=== PATIENT | male | born 1940 | race Caucasian/White ===

== ENCOUNTER 2017-11-30 05:52 | Emergency (ER) | payer MEDICARE, MEDICAID ==
[~2017-11-30] VITALS: Ht 182.9 cm; Wt 72.0 kg
[~2017-11-30 05:52] MED LIST: ARIC10TA PO; ASPI81TA82 PO; BUSP10 PO; CALCTAB23 PO; DILA100C PO; ESCI10TA PO; FLEEENE3 PR; FOSA70TA PO; LEVO.05 PO; MEMA28CA PO; MILKSUS5 PO; NU-I150C PO; PROM25TA5 PO; RENATAB5 PO; ROBISYP PO; SENN8.6T8 PO; [UNRECOGNIZED DRUG - CODE] PO
[2017-11-30 06:01] VITALS: BP 141/63; PULSE 76; RESP 16; TEMP 98.7; O2SAT 98
[2017-11-30 07:02] VITALS: BP 114/56; PULSE 70; RESP 18; O2SAT 99
--- NOTE | 2017-11-30 07:51 | PD ---
HPI Chief Complaint: Fall Time Seen by Provider: 07:25 Travel History International Travel<30 days: No Contact w/Intl Traveler<30days: No Traveled to known affect area: No History of Present Illness HPI 77-year-old male residential patient with history of dementia presents to the ER today brought in by EMS after he fell out of bed. Patient remembers falling out of bed, denies significant injuries, but does complain of neck pain but he states it hurts all the time anyway. He admits to having bumped his head but denies any loss of consciousness. He says that he was able to get up on his own and walk. However, it is unclear whether he is a reliable historian. Modifying Factors: None Associated Signs & Symptoms: Fall from bed, neck pain, minor head injury Risk Factors: Elderly, dementia PFSH Past Medical History Hx Anticoagulant Therapy: Yes Alzheimer's Disease: Yes Anemia: Yes Arthritis: Yes (OSTEO) Asthma: No Autoimmune Disease: No Blood Disorders: No Anxiety: Yes Depression: Yes Heart Rhythm Problems: No Cancer: No Cardiovascular Problems: No High Cholesterol: No Chemotherapy: No Chest Pain: No Congestive Heart Failure: No COPD: No Cerebrovascular Accident: No Dementia: Yes Diabetes: No Diminished Hearing: No Endocrine: No Gastrointestinal Disorders: No GERD: Yes Glaucoma: No Genitourinary: No Headaches: No Hepatitis: No Hiatal Hernia: No Hypertension: No Immune Disorder: No Kidney Stones: No Musculoskeletal: No Neurologic: Yes Psychiatric: Yes (DEMENTIA/ALZHEIMER'S DISEASE) Reproductive: No Respiratory: No Migraines: No Myocardial Infarction: No Radiation Therapy: No Renal Failure: Yes Seizures: Yes Sleep Apnea: No Thyroid Disease: No Ulcer: No Tetanus Vaccination: < 5 Years Past Surgical History Abdominal Surgery: No AICD: No Appendectomy: No Arteriovenous Shunt: No Cardiac Surgery: No Cholecystectomy: No Ear Surgery: No Endocrine Surgery: No Eye Surgery: No Genitourinary Surgery: No Gynecologic Surgery: No Insulin Pump: No Joint Replacement: No Neurologic Surgery: No Oral Surgery: No Pacemaker: No Thoracic Surgery: No Other Surgery: No (POOR HISTORIAN PT WITH DEMENTIA FROM [place]) Social History Alcohol Use: No Tobacco Use: No Substance Use: No Allergies-Medications (Allergen,Severity, Reaction): Coded Allergies: No Known Allergies (Verified , 06/11/15) Reported Meds & Prescriptions Reported Meds & Active Scripts Active Active Prescriptions or Reported Medications Unobtainable Review of Systems ROS Limitations: Poor Historian Except as stated in HPI: all other systems reviewed are Neg Physical Exam Narrative GENERAL: Well-developed elderly male patient currently and no acute distress. Awake and alert. SKIN: Focused skin assessment warm/dry. HEAD: Atraumatic. Normocephalic. EYES: Pupils equal and round. No scleral icterus. No injection or drainage. ENT: No nasal bleeding or discharge. Mucous membranes pink and moist. NECK: Trachea midline. No JVD. CARDIOVASCULAR: Regular rate and rhythm. No murmur appreciated. RESPIRATORY: No accessory muscle use. Clear to auscultation. Breath sounds equal bilaterally. GASTROINTESTINAL: Abdomen soft, non-tender, nondistended. Hepatic and splenic margins not palpable. Pelvis: Mildly tender to palpation in the right hip area. Slightly shortened right extremity compared to the left. MUSCULOSKELETAL: No obvious deformities. No clubbing. No cyanosis. No edema. NEUROLOGICAL: Awake and alert. No obvious cranial nerve deficits. Motor grossly within normal limits. Normal speech. PSYCHIATRIC: Appropriate mood and affect; insight and judgment normal. Data Data Last Documented VS Vital Signs Date Time Temp Pulse Resp B/P (MAP) Pulse Ox O2 Delivery O2 Flow Rate FiO2 11/30/17 07:02 70 18 114/56 (75) 99 Room Air 11/30/17 06:[address] Brain W/O Iv Contrast(Rout) (11/30/17 07:25) Ct Cerv Spine W/O Contrast (11/30/17 07:25) Hip, Uni(Ap&Lat) W Ap Pelvis (11/30/17 07:25) MDM Medical Decision Making Medical Screen Exam Complete: Yes Emergency Medical Condition: Yes Medical Record Reviewed: Yes Interpretation(s) Last 24 hours Impressions Hip and Pelvis X-Ray 11/30/17724 Signed Impressions: Service Date/Time: Thursday, November 30, 2017 07:41 - CONCLUSION: 1. No acute fracture or joint dislocation. 2. 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 3. Old healed fracture of the femur. Marco James MD Head CT 11/30/17724 Signed Impressions: Service Date/Time: Thursday, November 30, 2017 07:49 - CONCLUSION: 1. No acute intracranial abnormality. 2. 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 3. 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 Michele Jerez MD Differential Diagnosis Fall from bed, minor head injury, neck pain, right hip pain: Contusions versus fracture versus intracranial injuries Narrative Course CAT scans did not show any signs of acute intracranial injuries or C-spine injuries. X-rays not show any signs of acute fractures. At this point, my plan would be to release the patient back to facility. Return for any worsening in pain or new symptoms as needed. Diagnosis Primary Impression: Fall from bed Scripts Unable to Obtain Active Prescriptions or Reported Meds Disposition: 03 DISCHARGE TO SNF Condition: Stable Lindsay Paulino MD Nov 30, 2017 07:51
--- NOTE | 2017-11-30 08:10 | RADRPT ---
EXAM DATE/TIME: 11/30/2017 07:41 [facility] COMPARISON: No previous studies available for comparison. INDICATIONS : Fall, complains of right hip pain. MEDICAL HISTORY : None. SURGICAL HISTORY : Right femur yifan ENCOUNTER: Initial ACUITY: 1 day PAIN SCORE: 5/10 LOCATION: Right hip FINDINGS: There is evidence of previous internal fixation for a fracture involving the proximal shaft of the fe mur. The hardware is intact. There is an old healed fracture involving the proximal shaft of the femu r. There is extensive osteoarthritis at the right hip joint. There is narrowing of the joint space. T here is some deformity involving the femoral head. No acute fracture or joint dislocation. CONCLUSION: 1. No acute fracture or joint dislocation. 2. 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 3. Old healed fracture of the femur. Marco James MD on November 30, 2017 at 8:07 Board Certified Radiologist. This report was verified electronically.
--- NOTE | 2017-11-30 09:02 | RADRPT ---
EXAM DATE/TIME: 11/30/2017 07:49 [facility] COMPARISON: CT BRAIN W/O CONTRAST, March 14, 2014, 19:42. INDICATIONS : Fall RADIATION DOSE: 29.64 CTDIvol (mGy) MEDICAL HISTORY : Dementia. Seizures. SURGICAL HISTORY : None. ENCOUNTER: Initial ACUITY: 1 day PAIN SCALE: 3/10 LOCATION: cranial TECHNIQUE: Multiple contiguous axial images were obtained of the head. Using automated exposure control and adj ustment of the mA and/or kV according to patient size, radiation dose was kept as low as reasonably a chievable to obtain optimal diagnostic quality images. DICOM format image data is available electro nically for review and comparison. FINDINGS: CEREBRUM: Encephalomalacia in the right medial occipital lobe mid convexities. Prominent diffuse cerebral atrop hy. Ventricles are within normal limits given degree of atrophy. No evidence of midline shift, mass lesion, hemorrhage or acute infarction. No extra-axial fluid collections are seen. POSTERIOR FOSSA: Redemonstration of multiple small lacunar infarcts in the cerebral hemispheres bilaterally. Brain risa m appears intact. The 4th ventricle is midline. The cerebellopontine angle is unremarkable. EXTRACRANIAL: The visualized portion of the orbits is intact. SKULL: The calvaria is intact. No evidence of skull fracture. CONCLUSION: 1. No acute intracranial abnormality. 2. 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 3. 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 Michele Jerez MD on November 30, 2017 at 8:55 Board Certified Radiologist. This report was verified electronically.
--- NOTE | 2017-11-30 09:11 | RADRPT ---
EXAM DATE/TIME: 11/30/2017 07:49 [facility] COMPARISON: No previous studies available for comparison. INDICATIONS : Fall RADIATION DOSE: 16.69 CTDIvol (mGy) MEDICAL HISTORY : Dementia. Seizures. SURGICAL HISTORY : None. ENCOUNTER: Initial ACUITY: 1 day PAIN SCALE: 4/10 LOCATION: neck TECHNIQUE: Volumetric scanning of the cervical spine was performed. Multiplanar reconstructions in the sagittal, coronal and oblique axial planes were performed. Using automated exposure control and adjustment o f the mA and/or kV according to patient size, radiation dose was kept as low as reasonably achievable to obtain optimal diagnostic quality images. DICOM format image data is available electronically f or review and comparison. FINDINGS: Vertebral body heights are maintained. Osseous structures are intact without evidence for acute bony fracture. Dens is intact. Sagittal alignment is maintained. There is a normal C1-2 relationship. Face ts are normally aligned. There is no significant prevertebral soft tissue hematoma. Prominent degener ative spondylosis of the cervical spine with severe disc space narrowing and prominent osteophytes mo st prominently at C3-4 and C5-6. Associated anterior bony central canal narrowing at these levels. Th ere is also mild/moderate multilevel facet arthropathy. No significant cervical adenopathy or gross m ass. The thyroid appears unremarkable. Visualized lung apices are clear without pneumothorax. CONCLUSION: 1. No acute fracture or subluxation. 2. Advanced multilevel degenerative spondylosis of the cervical spine most prominently at C3-4 and C5 -6. Michele Jerez MD on November 30, 2017 at 8:59 Board Certified Radiologist. This report was verified electronically.
[2017-11-30 10:16] VITALS: BP 120/65; PULSE 81; RESP 18; O2SAT 98
== END 2017-11-30 10:22 ==
LOC: NEPC 05:52
DX: M16.11 Unilateral primary osteoarthritis, right hip (principal); M50.31 Other cervical disc degeneration, high cervical region; M50.322 Other cervical disc degeneration at C5-C6 level; G30.9 Alzheimer's disease, unspecified; F02.80 Dementia in other diseases classified elsewhere, unspecified severity, without behavioral disturbance, psychotic disturbance, mood disturbance, and anxiety; F41.9 Anxiety disorder, unspecified; F32.9 Major depressive disorder, single episode, unspecified; K21.9 Gastro-esophageal reflux disease without esophagitis; W06.XXXA Fall from bed, initial encounter
CPT/HCPCS: 70450; 72125; 73502; 99284